=== PATIENT | male | born 1990 | race Caucasian/White ===

== ENCOUNTER 2017-02-04 18:51 | Emergency (ER) | payer SELFPAY ==
[~2017-02-04] VITALS: Ht 170.2 cm; Wt 62.4 kg
[~2017-02-04 18:51] MED LIST: BENADRYL25 MG PO; FLEXERIL OR; LORTAB 5/3255 MG PO; MOTRIN600 MG OR; NAPROSYN500 MG OR; PENICILLN VK500 MG OR; TRAMADOL HCL50 MG OR; ULTRAM50 MG OR
[2017-02-04] MEDS ORDERED: THERAFL PO (19:01)
[2017-02-04 19:41] LABS: INFLUENZA A NONE DETECTED (NONE DETECT); INFLUENZA B NONE DETECTED (NONE DETECT)
[2017-02-04] MEDS ORDERED: MUCINEX600 MG PO (19:53)
[2017-02-04] MEDS ORDERED: ZOFRAN4 MG/TAB PO (19:53)
[2017-02-04 19:56] VITALS: BP 128/72
== END 2017-02-04 20:05 | disposition home or self-care (01) | DRG 866 ==
LOC: ED 18:51
PROVIDERS: Emergency Medicine
DX: B34.9 Viral infection, unspecified (principal); F17.210 Nicotine dependence, cigarettes, uncomplicated; R05 Cough; R11.2 Nausea with vomiting, unspecified; R10.9 Unspecified abdominal pain; R50.9 Fever, unspecified

== ENCOUNTER 2017-09-04 16:59 | Emergency (ER) | payer SELFPAY ==
[~2017-09-04] VITALS: Ht 170.2 cm; Wt 60.0 kg
[~2017-09-04 16:59] MED LIST changes: +MUCINEX600 MG PO; +THERAFL PO; +ZOFRAN4 MG/TAB PO
[2017-09-04 18:24] LABS: IMMATURE GRANULOCYTES 0.3 % (0.0-5.0); MEAN CORPUSCULAR HGB 30.7 pG CALC (26.0-32.0); MEAN CORPUSCULAR HGB CONC 35.8 g/L CALC (32.0-36.0); NEUT# 7.11 thou/uL (1.82-7.42); RED BLOOD COUNT 6.1 mill/uL (4.70-6.10); RED CELL DISTRI WIDTH 11.9 % (11.5-15.5)
[2017-09-04 18:27] LABS: HEMATOCRIT 52.3 % (39.0-50.0); HEMOGLOBIN 18.7 g/dl (14.0-18.0); MEAN CELL VOLUME 85.7 fL CALC (80.0-100.0)
[2017-09-04 18:34] LABS: ANION GAP 22 (6-22 (CALC)); BUN 35 mg/dL (9-20); BUN/CREATININE RATIO 31 (12-20 (CALC)); CARBON DIOXIDE 26 mmol/l (22-30); CHLORIDE 92 mmol/l (95-108); CPK 551 u/l (52-200); CREATININE 1.1 mg/dL (0.7-1.3); GFR > 60 ML/MIN (>=60 (CALC)); GFR FOR AFR.AMER. > 60 ML/MIN (>=60 (CALC)); LIPASE 218 u/l (23-300); POTASSIUM 3.5 mmol/l (3.5-5.1); SODIUM 136 mmol/l (137-146)
[2017-09-04 20:24] LABS: URINE BLOOD DIPSTICK SMALL (NEGATIVE); URINE COLOR YELLOW; URINE GLUCOSE - DIPSTICK NEGATIVE (NEGATIVE); URINE KETONE 15 mg/dL (NEGATIVE); URINE LEUK ESTERASE NEGATIVE (NEGATIVE); URINE NITRITE - DIPSTICK NEGATIVE (Negative); URINE PROTEIN - DIPSTICK 30 mg/dL (NEG-TRACE); URINE UROBILINOGEN - DIPSTICK 0.2 E.U./dL (0.2)
[2017-09-04 20:46] LABS: URINE BILIRUBIN - DIPSTICK NEGATIVE (NEGATIVE); URINE CLARITY CLEAR
[2017-09-04 20:53] LABS: URINE BACTERIA FEW hpf; URINE MUCUS FEW hpf (NONE-FEW); URINE SQUAMOUS EPITHELIAL CELL FEW EPI/hpf (0-FEW)
[2017-09-04 21:41] LABS: BARBITURATES NEGATIVE (NEGATIVE); COCAINE NEGATIVE (NEGATIVE); METHADONE NEGATIVE (NEGATIVE); OXCYCODONE NEGATIVE (NEGATIVE); TETRAHYDROCANNABIONOL POSITIVE (NEGATIVE); TRICYLIC ANTIDEPRESSANTS NEGATIVE (NEGATIVE)
[2017-09-04 22:09] VITALS: BP 110/59
== END 2017-09-04 22:18 | disposition home or self-care (01) | DRG 392 ==
LOC: ED 16:59
PROVIDERS: Family Medicine
DX: R11.2 Nausea with vomiting, unspecified (principal); E86.0 Dehydration; F19.10 Other psychoactive substance abuse, uncomplicated; F17.210 Nicotine dependence, cigarettes, uncomplicated
CPT/HCPCS: Q9967

== ENCOUNTER 2017-12-10 00:45 | Emergency (ER) | payer SELFPAY ==
[~2017-12-10] VITALS: Ht 170.2 cm; Wt 61.3 kg
[2017-12-10] MEDS ORDERED: LORTAB 1010 MG PO (01:05)
[2017-12-10] MEDS ORDERED: AMOXICILLIN500 MG PO (01:05)
[2017-12-10 01:15] VITALS: BP 139/87
== END 2017-12-10 01:15 | disposition home or self-care (01) | DRG 159 ==
LOC: ED 00:45
DX: K04.7 Periapical abscess without sinus (principal); K08.89 Other specified disorders of teeth and supporting structures; R59.1 Generalized enlarged lymph nodes; F17.210 Nicotine dependence, cigarettes, uncomplicated

== ENCOUNTER 2018-02-25 09:34 | Emergency (ER) | payer SELFPAY ==
[~2018-02-25] VITALS: Ht 170.2 cm; Wt 60.0 kg
[~2018-02-25 09:34] MED LIST changes: +AMOXICILLIN500 MG PO; +LORTAB 1010 MG PO
[2018-02-25] MEDS ORDERED: TAM75CAP PO (11:17)
[2018-02-25] MEDS ORDERED: ZITHROMAX250 MG PO (11:17)
[2018-02-25] MEDS ORDERED: TORADOL PO (11:17)
[2018-02-25 11:36] VITALS: BP 128/81
== END 2018-02-25 11:36 | disposition home or self-care (01) | DRG 153 ==
LOC: ED 09:34
DX: J11.1 Influenza due to unidentified influenza virus with other respiratory manifestations (principal); F17.210 Nicotine dependence, cigarettes, uncomplicated

== ENCOUNTER 2018-06-03 20:43 | Emergency (ER) | payer SELFPAY ==
[~2018-06-03] VITALS: Ht 170.2 cm; Wt 62.0 kg
[~2018-06-03 20:43] MED LIST changes: +TAM75CAP PO; +TORADOL PO; +ZITHROMAX250 MG PO
[2018-06-03] MEDS ORDERED: SULFACET SOD10 % OD (21:06)
[2018-06-03] MEDS ORDERED: NO HOME MEDS (21:24)
[2018-06-03 21:25] VITALS: BP 127/79
== END 2018-06-03 21:25 | disposition home or self-care (01) | DRG 125 ==
LOC: ED 20:43
DX: H00.012 Hordeolum externum right lower eyelid (principal)

== ENCOUNTER 2021-07-03 17:51 | Emergency (ER) | payer SELFPAY ==
[~2021-07-03] VITALS: Ht 170.2 cm; Wt 67.0 kg
[~2021-07-03 17:51] MED LIST changes: +NO HOME MEDS; +SULFACET SOD10 % OD
[2021-07-03 17:56] VITALS: BP 149/88
[2021-07-03] MEDS ORDERED: LORTAB 7.57.5 MG PO (18:52)
[2021-07-03] MEDS ORDERED: DOXYCYCLINE100 MG PO (18:52)
[2021-07-03 19:02] VITALS: BP 149/88
== END 2021-07-03 19:10 | disposition home or self-care (01) | DRG 603 ==
LOC: ED 17:51
PROC: 0H98XZZ Drainage of Buttock Skin, External Approach (ICD-10-PCS; principal; 2021-07-03)
DX: L02.31 Cutaneous abscess of buttock (principal); B95.62 Methicillin resistant Staphylococcus aureus infection as the cause of diseases classified elsewhere; F17.200 Nicotine dependence, unspecified, uncomplicated

== ENCOUNTER 2022-06-09 23:37 | Emergency (ER) | payer SELFPAY ==
[~2022-06-09] VITALS: Ht 170.2 cm; Wt 68.0 kg
[~2022-06-09 23:37] MED LIST changes: +DOXYCYCLINE100 MG PO; +LORTAB 7.57.5 MG PO
[2022-06-09] MEDS ORDERED: NAPROXEN SOD500 MG PO (23:52)
[2022-06-09] MEDS ORDERED: CLINDAMYCIN300 M1 PO (23:52)
[2022-06-10 00:06] VITALS: BP 131/86
== END 2022-06-10 00:06 | disposition home or self-care (01) | DRG 159 ==
LOC: ED 23:37
DX: K02.9 Dental caries, unspecified (principal); F17.200 Nicotine dependence, unspecified, uncomplicated

== ENCOUNTER 2022-09-11 20:31 | Emergency (ER) | payer OTHER ==
[~2022-09-11] VITALS: Ht 170.2 cm; Wt 68.0 kg
[~2022-09-11 20:31] MED LIST changes: +CLINDAMYCIN300 M1 PO; +NAPROXEN SOD500 MG PO
[2022-09-11 20:58] VITALS: BP 122/74
[2022-09-11 21:01] VITALS: BP 114/87
[2022-09-11] MEDS ORDERED: LORTAB 1010 MG PO (21:09)
[2022-09-11] MEDS ORDERED: FLOXIN OTIC0.3 % AS (21:09)
[2022-09-11] MEDS ORDERED: AMOXICILLIN/PO500 MG PO (21:09)
[2022-09-11 21:35] VITALS: BP 114/87
== END 2022-09-11 21:35 | disposition home or self-care (01) | DRG 159 ==
LOC: ED 20:31
DX: K04.7 Periapical abscess without sinus (principal); H66.92 Otitis media, unspecified, left ear; S02.5XXA Fracture of tooth (traumatic), initial encounter for closed fracture; F17.200 Nicotine dependence, unspecified, uncomplicated; X58.XXXA Exposure to other specified factors, initial encounter

== ENCOUNTER 2023-07-28 17:11 | Emergency (ER) | payer OTHER ==
[~2023-07-28] VITALS: Ht 170.2 cm; Wt 74.0 kg
[~2023-07-28 17:11] MED LIST changes: +AMOXICILLIN/PO500 MG PO; +FLOXIN OTIC0.3 % AS
[2023-07-28 17:51] VITALS: BP 118/67
[2023-07-28] MEDS ORDERED: PENICILLN VK500 MG PO (17:52)
[2023-07-28] MEDS ORDERED: TRAMADOL HYDROC50 M1 PO (17:52)
== END 2023-07-28 18:05 | disposition home or self-care (01) | DRG 159 ==
LOC: ED 17:11
DX: K04.7 Periapical abscess without sinus (principal); F17.210 Nicotine dependence, cigarettes, uncomplicated